=== PATIENT | male | born 1980 | race Caucasian/White ===

== ENCOUNTER 2016-09-15 12:03 | Emergency (ER) | payer MEDICAID ==
[~2016-09-15] VITALS: Ht 170.2 cm; Wt 107.0 kg
[2016-09-15 12:05] VITALS: Ht 170.2 cm; Wt 107.0 kg
[2016-09-15] MEDS ORDERED: ALBUTEROL 0.083% (NEB) 2.5 MG/3 ML AMP HHN STA (12:25)
[2016-09-15] MEDS ORDERED: IPRATROPIUM (NEB) 0.5 MG/2.5 ML AMP HHN ONE (12:30)
[2016-09-15] MEDS ORDERED: DEXAMETHASONE 10 MG/ML 1 ML INJ PO ONE (12:30)
--- NOTE | 2016-09-15 12:59 | RADRPT ---
PROCEDURE: XR Chest. CLINICAL INDICATION: Cough. TECHNIQUE: Single frontal view. COMPARISON: None. FINDINGS: There is a calcification in the right mid lung zone laterally. The lungs are otherwise clear. The heart size is normal. There is no pleural effusion. There is no pneumothorax. IMPRESSION: 1. Calcification in the right midlung zone laterally consistent with previous granulomatous disease . 2. Otherwise normal chest radiograph. RPTAT: QQ .Ramana Morton MD, MD Date Time Electronically viewed and signed by .Ramana Morton MD, MD on 09/15/2016 12:59 .R/
[2016-09-15] MEDS ORDERED: PRED20TA PO (13:02)
[2016-09-15] MEDS ORDERED: ALBU8.5H3 INH (13:02)
--- NOTE | 2016-09-15 13:08 | ERD ---
ER Documentation Chief Complaint Date/Time DATE: 09/15/16 TIME: 13:06 Chief Complaint cough, throat pain and chest congestion x 3 weeks HPI This is a 36-year-old male that presents to the ER productive cough for the last month. Patient states that he has a lot of wheezing at night. He also complains of throat pain and chest congestion. Patient denies any chest pain or shortness of breath. He denies any fevers or chills. He denies any nausea vomiting or diarrhea. ROS 12 point review of systems was done, all negative except per HPI. Medications Home Meds Active Scripts Albuterol Sulfate* (Proair HFA*) 8.5 Gm Hfa.aer.ad, 2 PUFF INH Q4, #1 INHALER Prov:VANDANA DYER 09/15/16 Prednisone* (Prednisone*) 20 Mg Tab, 60 MG PO DAILY for 4 Days, TAB Prov:VANDANA DYER 09/15/16 Reported Medications [None] No Conflict Check 02/14/11 Allergies Allergies: Coded Allergies: No Known Drug Allergy (Verified Allergy, Mild, 02/14/11) PMhx/Soc History of Surgery: No Anesthesia Reaction: No Hx Neurological Disorder: No Hx Respiratory Disorders: No Hx Cardiac Disorders: No Hx Psychiatric Problems: No Hx Miscellaneous Medical Probl: No Hx Alcohol Use: No Hx Substance Use: No Hx Tobacco Use: No Physical Exam Vitals Vital Signs Date Time Temp Pulse Resp B/P Pulse Ox O2 Delivery O2 Flow Rate FiO2 09/15/16 12:57 95 20 93 21 09/15/16 12:05 98.8 92 18 137/81 94 Physical Exam GENERAL: The patient is well-developed, well-nourished, in no acute distress. NECK: Cervical spine is non tender with no step off. Supple, no nuchal rigidity HEENT: Atraumatic. Pupils equal, round and reactive to light. Extraocular muscles are grossly intact. Conjunctivae pink, no discharge. Bilateral tympanic membranes are clear with no evidence of erythema, effusion or dulling of the light reflex. Tonsilar erythema with no exudates or uvular deviation. Clear rhinorrhea. RESPIRATORY: X-ray wheezes in all lung rosa otherwise clear to auscultation. No rales rhonchi or crackles HEART: Regular rate and rhythm. No murmurs, clicks, rubs or gallops. NEUROLOGIC: Alert and oriented SKIN: There is no rash. The skin is warm and dry. Results 24 hrs Current Medications Medications (Trade) Dose Ordered Sig/Trang Route PRN Reason Start Time Stop Time Status Last Admin Dose Admin Albuterol (Proventil 0.083% (Neb)) 5 mg ONCE STAT HHN 09/15/16 12:25 09/15/16 12:28 DC 09/15/16 12:53 Ipratropium [place] (Atrovent 0.02% (Neb)) 0.5 mg ONCE ONCE HHN 09/15/16 12:30 09/15/16 12:31 DC 09/15/16 12:52 Dexamethasone (Decadron) 10 mg ONCE ONCE PO 09/15/16 12:30 09/15/16 12:31 DC 09/15/16 12:43 Procedures/MDM Differential diagnosis includes but is not limited to; Viral URI, allergic rhinitis, bronchitis, pertussis,pneumonia. This is likely viral in etiology. This patient had wheezing and secondary to the leg symptoms this may be bronchitis. Patient will be sent home with a course of steroids added an albuterol inhaler. Clinical suspicion for pneumonia is low as patient appears well, is not hypoxic or in any respiratory distress. Additionally, patients physical examination is benign. Plan was discussed with patient they understand and agree. Patient needs to follow up with PCP in 1-2 days or return to ER sooner if symptoms worsen. Departure Diagnosis: Primary Impression: Bronchitis Condition: Stable Patient Instructions: Bronchitis With Wheezing (Adult) Additional Instructions: Llame al doctor TASHA y barbara venus LEVON PARA [place]TRO DE [address].Dgale a la secretaria que nosotros le instruimos hacer esta levon.Avise o llame si nguyen condicin se empeora antes de la levon. Regresa aqui si peor o no mejor. VANDANA DYER Sep 15, 2016 13:08
== END 2016-09-15 13:28 | disposition home or self-care (01) ==
LOC: FTE 12:03
DX: J40 Bronchitis, not specified as acute or chronic (principal)
CPT/HCPCS: 71010; 94664; J1100; Z7610